=== PATIENT | male | born 1995 | race Caucasian/White ===

== ENCOUNTER 2020-12-16 12:50 | Inpatient (IN) | payer OTHER, SELFPAY ==
[2020-12-16 13:34] VITALS: BP 132/74; PULSE 80; RESP 18; TEMP 36.9; O2SAT 100; BMI 24.7
--- NOTE | 2020-12-16 15:17 | ED.PSYCH ---
HPI - Psych General Chief Complaint: Psychiatric Symptoms Stated Complaint: anxiety Time Seen by Provider: 12/16/20 18:27 Source: patient Mode of arrival: ambulatory Limitations: no limitations History of Present Illness HPI Narrative: Patient presents to ED for worsening anxiety. Patient states that he feels so anxious that he has been calling out of work. Patient states also not been able to sleep and anxiety. Patient states he has not been able to see his therapist or psychiatrist. Patient denies any alcohol or drug abuse. Patient states he has been off antidepressants for over a year. Patient states vague SI statements. Related Data Allergies Allergy/AdvReac Type Severity Reaction Status Date / Time No Known Allergies Allergy Verified 12/16/20 13:34 Review of Systems Review of Systems: Yes all other systems are reviewed and are negative Constitutional: Constitutional: Reports as per HPI and Reports no additional constitutional complaints Eyes: Eyes: Reports as per HPI and Reports no additional eye complaints ENT: Reports system reviewed and no additional complaints, except as documented and Reports as per HPI Cardiovascular: Cardiovascular: Reports as per HPI and Reports no additional cardiovascular complaints Respiratory: Respiratory: Reports as per HPI and Reports no additional respiratory complaints Gastrointestinal: Gastrointestinal: Reports as per HPI and Reports no additional gastrointestinal complaints Genitourinary: Genitourinary: Reports no additional male genitourinary complaints and Reports as per HPI Musculoskeletal: Musculoskeletal: Reports no additional musculoskeletal complaints and Reports as per HPI Integumentary/Breasts: Skin/Breast: Reports system reviewed and no additional complaints, except as docu and Reports as per HPI Neurologic: Reports system reviewed and no additional complaints, except as documented and Reports as per HPI Psychiatric: Psychiatric: Reports no additional psychiatric complaints, Reports as per HPI and Reports anxiety [facility] Past Medical History Medical History (Updated 12/16/20 @ 19:41 by FRIEDA Castro) Anxiety Depression Social History Social History Household Members: Significant Other and Family Housing: Apartment Do you presently have visiting nurse or other home services: No Alcohol intake: former Patient Tobacco Use Status: Never used Tobacco Use of substances other than those prescribed or required for medical reasons: No Have you been hit, kicked, punched, or otherwise hurt by someone within the past year? If so, by whom?: No Do you feel safe in your current relationship?: No Is there a partner from a previous relationship who is making you feel unsafe now?: No Are you made to feel afraid or neglected: No Spiritual Healthcare Practices: n/a Orthodoxy Healthcare Practices: n/a Cultural Healthcare Practices: n/a Advance Directives: No Advance Directives Information Provided: No Guardian: No Do you have thoughts of harming others: None Do you have a plan to hurt others: No Plan Recently lost weight without trying: Unsure Nutrition Risks: Poor intake 0-25% >4 days Poor oral hygiene: No Physical Exam Vital Signs: Vital Signs: Last Vital Signs Temp 97.5 F 12/16/20 17:25 Pulse 70 12/16/20 17:25 Resp 18 12/16/20 15:27 BP 133/80 12/16/20 17:25 Pulse Ox 100 12/16/20 17:25 Body Mass Index 24.7 Const: General: cooperative, healthy appearing, comfortable, no acute distress, well developed, alert and awake Orientation/consciousness: patient oriented x3 HENMT: Head: Yes normal to inspection, Yes No palpable skull fracture present, Yes normocephalic and Yes atraumatic Eyes: General: appearance normal, both eyes and all related structures Neck: Neck: Yes normal visual inspection, Yes full ROM, Yes no lymphadenopathy, Yes no meningeal signs, Yes trachea midline, Yes supple and No tender Chest: Chest palpation & inspection: normal inspection of the chest and normal palpation of entire chest wall Resp: Effort & Inspection: normal respiratory effort and able to speak in complete sentences Auscultation: clear to auscultation bilaterally Cardio: Jugular venous distension: no JVD Heart sounds: S1 normal heart sound present and S2 normal heart sound present GI: Inspection: Yes normal to inspection and No abdominal wall ecchymosis Palpation (GI): Soft to palpation, not firm, nontender, no guarding and not rigid : General: No CVA tenderness and Yes no CVA tenderness Back/Spine/Pelvis: Back: no CVA tenderness, No CVA tenderness and No back tenderness Skin: General skin exam: no rashes or lesions noted and elasticity normal Neuro: General: patient oriented x3, gait normal, no meningeal signs and CN's II-XI intact bilaterally Cranial nerves: Yes CN's II-XII intact bilaterally Psych: Other: Anxiety Appearance: grossly normal, well kempt and not disheveled Course Course Course Narrative: Labs will be sent. Care team consulted will see patient after labs. Reevaluation(s) Reevaluation #1: Patient seen by care team consulted Jaymie who recommends patient to be admitted for psych admission for anxiety/depression. Labs are normal Time: 18:20 MDM - Psych MDM Narrative Medical decision making narrative: Anxiety/depression Lab Data Result diagrams: 12/16/20 15:23 12/16/20 15:23 Labs: Lab Results 12/16/20 12/16/20 12/16/20 Range/Units 13:43 15:23 15:23 WBC 7.9 (4.8-10.8) X10*3/uL RBC 5.54 (4.60-5.80) X10*6/uL Hgb 17.0 (14.0-18.0) g/dl Hct 48.1 (42-52) % MCV 86.8 (80-98) fL MCH 30.7 (27.0-33.0) pg MCHC 35.3 (31.0-36.0) g/dl RDW 11.3 (11.0-16.0) % Plt Count 273 (160-400) X10*3/uL MPV 9.7 (9.4-12.4) fL Immature Gran % (Auto) 0.3 (0.0-0.4) % Neut % (Auto) 68.1 (45-73) % Lymph % (Auto) 23.9 (20-40) % [place] % (Auto) 6.6 (2-11) % Eos % (Auto) 0.6 (0-4) % Baso % (Auto) 0.5 (0-2) % Lymph # (Auto) 1.9 (1.2-4.9) X10*3/uL [place] # (Auto) 0.5 (0.1-1.2) X10*3/uL Eos # (Auto) 0.1 (0.0-0.4) X10*3/uL Baso # (Auto) 0.0 (0.0-0.2) X10*3/uL Abs Immat Gran (auto) 0.02 (0.00-0.03) X10*3/uL Absolute Neuts (auto) 5.4 (2.0-8.3) X10*3/uL Absolute Nucleated RBC 0.000 (0.0-0.012) X10*3/uL Nucleated RBC % (auto) 0.0 (0.0-0.2) /100WBC Sodium 142 (135-145) mmol/L Potassium 3.8 (3.3-5.1) mmol/L Chloride 107 (96-108) mmol/L Carbon Dioxide 23 (22-29) mmol/L Anion Gap 16 (12-20) BUN 7 L (9-16) mg/dL Creatinine 0.83 (0.5-1.4) mg/dL Estim Creat Clear Calc 138.4 Estimated GFR > 60 Random Glucose 89 (60-115) mg/dL Calcium 10.1 (8.4-10.2) mg/dL Total Bilirubin 0.6 (0.0-1.0) mg/dL AST 15 (5-37) U/L ALT 18 (0-40) U/L Alkaline Phosphatase 76 (39-117) U/L Total Protein 7.7 (6.5-8.0) g/dL Albumin 4.9 (3.5-5.0) g/dL Urine Color YELLOW Urine Appearance CLEAR Urine pH 6.0 (5.0-8.0) Ur Specific [place] <= 1.005 (1.005-1.025) Urine Protein NEG (NEG-TRACE) MG/DL Urine Glucose (UA) NEG (NEG) MG/DL Urine Ketones NEG (NEG) MG/DL Urine Blood NEG (NEG) Urine Nitrite NEG (NEG) Ur Leukocyte Esterase NEG (NEG) Urine Opiates Screen (Not Detect) Urine Fentanyl Screen (Not Detect) Ur Barbiturates Screen (Not Detect) Ur Phencyclidine Scrn (Not Detect) Ur Amphetamines Screen (Not Detect) U Benzodiazepines Scrn (Not Detect) Urine Cocaine Screen (Not Detect) U Marijuana (THC) Screen (Not Detect) Ethyl Alcohol mg/dL COVID-19 (DAVIE) (Negative) COVID-19 Clin Com 12/16/20 12/16/20 12/16/20 Range/Units 15:23 15:59 16:01 WBC (4.8-10.8) X10*3/uL RBC (4.60-5.80) X10*6/uL Hgb (14.0-18.0) g/dl Hct (42-52) % MCV (80-98) fL MCH (27.0-33.0) pg MCHC (31.0-36.0) g/dl RDW (11.0-16.0) % Plt Count (160-400) X10*3/uL MPV (9.4-12.4) fL Immature Gran % (Auto) (0.0-0.4) % Neut % (Auto) (45-73) % Lymph % (Auto) (20-40) % [place] % (Auto) (2-11) % Eos % (Auto) (0-4) % Baso % (Auto) (0-2) % Lymph # (Auto) (1.2-4.9) X10*3/uL [place] # (Auto) (0.1-1.2) X10*3/uL Eos # (Auto) (0.0-0.4) X10*3/uL Baso # (Auto) (0.0-0.2) X10*3/uL Abs Immat Gran (auto) (0.00-0.03) X10*3/uL Absolute Neuts (auto) (2.0-8.3) X10*3/uL Absolute Nucleated RBC (0.0-0.012) X10*3/uL Nucleated RBC % (auto) (0.0-0.2) /100WBC Sodium (135-145) mmol/L Potassium (3.3-5.1) mmol/L Chloride (96-108) mmol/L Carbon Dioxide (22-29) mmol/L Anion Gap (12-20) BUN (9-16) mg/dL Creatinine (0.5-1.4) mg/dL Estim Creat Clear Calc Estimated GFR Random Glucose (60-115) mg/dL Calcium (8.4-10.2) mg/dL Total Bilirubin (0.0-1.0) mg/dL AST (5-37) U/L ALT (0-40) U/L Alkaline Phosphatase (39-117) U/L Total Protein (6.5-8.0) g/dL Albumin (3.5-5.0) g/dL Urine Color Urine Appearance Urine pH (5.0-8.0) Ur Specific [place] (1.005-1.025) Urine Protein (NEG-TRACE) MG/DL Urine Glucose (UA) (NEG) MG/DL Urine Ketones (NEG) MG/DL Urine Blood (NEG) Urine Nitrite (NEG) Ur Leukocyte Esterase (NEG) Urine Opiates Screen Not Detected (Not Detect) Urine Fentanyl Screen Not Detected (Not Detect) Ur Barbiturates Screen Not Detected (Not Detect) Ur Phencyclidine Scrn Not Detected (Not Detect) Ur Amphetamines Screen Not Detected (Not Detect) U Benzodiazepines Scrn Not Detected (Not Detect) Urine Cocaine Screen Not Detected (Not Detect) U Marijuana (THC) Screen Not Detected (Not Detect) Ethyl Alcohol < 10 mg/dL COVID-19 (DAVIE) Negative (Negative) COVID-19 Clin Com See Note Discharge Plan Discharge Clinical Impression: Acute anxiety Patient Disposition: Admitted As Inpatient
[2020-12-16 15:27] VITALS: RESP 18
[2020-12-16 15:27] LABS: MANUAL DIFF FLAG NO
[2020-12-16 15:28] LABS: Basophils Percent Auto 0.5 % (0-2); Eosinophils Absolute Auto 0.1 X10*3/uL (0.0-0.4); Eosinophils Percent Auto 0.6 % (0-4); Hematocrit 48.1 % (42-52); Imm Gran Abs Auto 0.02 X10*3/uL (0.00-0.03); Imm Gran Pct Auto 0.3 % (0.0-0.4); Lymphocytes Absolute Auto 1.9 X10*3/uL (1.2-4.9); Lymphocytes Percent Auto 23.9 % (20-40); Mean Corpuscular HGB Conc 35.3 g/dl (31.0-36.0); Mean Corpuscular Hemoglobin 30.7 pg (27.0-33.0); Mean Corpuscular Volume 86.8 fL (80-98); Mean Platelet Volume 9.7 fL (9.4-12.4); Monocytes Absolute Auto 0.5 X10*3/uL (0.1-1.2); Monocytes Percent Auto 6.6 % (2-11); Neutrophils Absolute Auto 5.4 X10*3/uL (2.0-8.3); Neutrophils Percent Auto 68.1 % (45-73); Platelet Count 273 X10*3/uL (160-400); Red Blood Count 5.54 X10*6/uL (4.60-5.80); Red Cell Distribution Width 11.3 % (11.0-16.0); White Blood Count 7.9 X10*3/uL (4.8-10.8)
[2020-12-16 15:46] LABS: Alanine Aminotransferase 18 U/L (0-40); Albumin Level 4.9 g/dL (3.5-5.0); Alkaline Phosphatase 76 U/L (39-117); Anion Gap 16 (12-20); Aspartate Amino Transferase 15 U/L (5-37); Bilirubin Total 0.6 mg/dL (0.0-1.0); Blood Urea Nitrogen 7 mg/dL (9-16); Calcium 10.1 mg/dL (8.4-10.2); Carbon Dioxide 23 mmol/L (22-29); Chloride 107 mmol/L (96-108); Creatinine Clr Calc Pharmacy 138.4; Estimated Glomerular Filt Rate > 60; Glucose Random 89 mg/dL (60-115); Potassium 3.8 mmol/L (3.3-5.1); Sodium 142 mmol/L (135-145); Total Protein 7.7 g/dL (6.5-8.0)
[2020-12-16 15:54] LABS: Appearance Urine CLEAR; Color Urine YELLOW; Glucose Urine UA NEG (NEG); Leukocyte Esterase Urine NEG (NEG); Nitrite Urine NEG (NEG); Specific Gravity - Urine <= 1.005 (1.005-1.025); Urine Blood NEG (NEG); Urine Ketones NEG (NEG); Urine Protein NEG (NEG-TRACE)
[2020-12-16 16:08] LABS: Amphetamine Screen Urine Not Detected (Not Detect); Barbiturates, Urine Not Detected (Not Detect); Benzodiazepines Screen Urine Not Detected (Not Detect); Cannabinoid Screen Urine Not Detected (Not Detect); Cocaine Screen Urine Not Detected (Not Detect); Fentanyl, urine Not Detected (Not Detect); Opiate Screen Urine Not Detected (Not Detect); Phencyclidine Screen Urine Not Detected (Not Detect)
[2020-12-16 16:28] LABS: COVID-19 Test Negative (Negative)
[2020-12-16 16:29] LABS: Ethanol < 10 mg/dL
[2020-12-16 17:25] VITALS: BP 133/80; PULSE 70; TEMP 36.4; O2SAT 100
--- NOTE | 2020-12-16 18:54 | MHC.CARE ---
CARE team evaluated pt. Disposition is for inpt psych. Discussed with ED provider Silverio MALAVE and irrigation pump installer psychiatrist Martin Peralta MD, both are in agreement with plan of care. Pt will be transferred to [facility] for admission.
--- NOTE | 2020-12-16 19:32 | PC.ADMIT ---
PT admitted [place] [facility] for unspecified anxiety disorder and unspecified depressive disorder on a conditional voluntary. PT reports that he has been feeling anxious and depressed for a while but recently the symptoms have increased to the point that he has been calling out of work. Pt also reports intrusive thougths to harm himself by overdosing on medication. PT states that he has been experiencing poor sleep and apetite, feeling hopeless and helpless and not attending to his ADLs. PT denies intent to harm himself and is help seeking. PT is calm and cooperative with admission process, this is pt's first inpatient admission. Pt reports that he has a PCP and a therapist but has not been on medications since last year, stating that he was taking sertraline and found that helpful. PT denies SI/HI at time of admission, is hopeful and future focused. PT is covid negative and his tox screen was negative.
[2020-12-16] MEDS: traZODone HCL 50 MG TABLET PO (23:37)
[2020-12-17] MEDS: FLUoxetine HCl 10 MG CAPSULE PO (14:09)
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
[2020-12-17 18:00] VITALS: BP 139/72; PULSE 63; RESP 18; TEMP 36.6; O2SAT 99
[2020-12-17] MEDS: traZODone HCL 50 MG TABLET PO (23:17)
[2020-12-18 06:00] VITALS: BP 135/64; PULSE 73; RESP 18; TEMP 36.7; O2SAT 99
--- NOTE | 2020-12-18 09:00 | P.PNPSI_ITS ---
Subjective Subjective Date of Service: 12/19/20 Reason For Visit: SI Subjective Notes: Conditional Voluntary Interim History: Gallito reports feeling less anxious, less depressed. He reports improved sleep. He also reports eating better. He reports morning are difficult as he tends to feel more anxious in the morning. He denies SI/HI. He is looking forward to connect with OP psychiatric services. We discussed emotional bluntness with sertraline. He currently denies numbness with prozac but he was just recently started on it. we discussed halfway addition of wellbutrin if this happens. Per nursing, pt has been visible, attending groups, social with select peers. No behavioral concerns. Review of Systems Review of Systems Yes all other systems are reviewed and are negative Constitutional: Reports as per HPI and Reports no additional constitutional complaints Eyes: Reports as per HPI and Reports no additional eye complaints Reports system reviewed and no additional complaints, except as documented and Reports as per HPI Cardiovascular: Reports as per HPI and Reports no additional cardiovascular complaints Respiratory: Reports as per HPI and Reports no additional respiratory complaints Gastrointestinal: Reports as per HPI and Reports no additional gastrointestinal complaints Genitourinary: Reports no additional male genitourinary complaints and Reports as per HPI Musculoskeletal: Reports no additional musculoskeletal complaints and Reports as per HPI Skin/Breast: Reports system reviewed and no additional complaints, except as docu and Reports as per HPI Reports system reviewed and no additional complaints, except as documented and Reports as per HPI Psychiatric: Reports no additional psychiatric complaints, Reports as per HPI and Reports anxiety Mental Status Exam Mental Status Exam Narrative: Appearance: casually groomed, fair hygiene in NAD Behavior: calm, cooperative psychomotor:no agitation or retardation noted Speech:clear, normal rate/rhythm/volume, spontaneous Thought process:linear Thought content:no signs of psychosis, less depressed increasingly more future oriented. Mood: better Affect: brighter at times, congruent SI:denies HI:denies VH/AH:none Delusions:none Insight/judgment:fair x 2. Memory/cog: alert, oriented x 2. Diagnostics Vital Signs (24Hr): Vital Signs - 24 hr 12/18/20 21:03 Temperature 97.8 F Pulse Rate 76 Blood Pressure 144/75 H Pulse Oximetry 99 Body Mass Index 24.7 Labs Results: 12/16/20 15:23 12/16/20 15:23 Medications Medications Current Medications Acetaminophen (Acetaminophen 325 Mg Tablet) 650 mg PO Q6H PRN PRN Reason: Headache/Pain Mild Scale (1-3) Al Hydroxide/Mg Hydroxide (Magnesium Hydrox/Alum Hydrox 30 Ml Oral.Susp) 30 ml PO Q6H PRN PRN Reason: Heartburn/Nausea Fluoxetine HCl (Fluoxetine Hcl 20 Mg Capsule) 20 mg PO DAILY BÁRBARA Hydroxyzine HCl (Hydroxyzine Hcl 25 Mg Tablet) 25 mg PO BEDTIME PRN PRN Reason: Anxiety Magnesium Hydroxide (Milk Of Magnesia 30 Ml Oral.Susp) 30 ml PO DAILY PRN PRN Reason: Constipation Trazodone HCl (Trazodone Hcl 50 Mg Tablet) 50 mg PO BEDTIME PRN PRN Reason: Insomnia Last Admin: 12/18/20 23:02 Dose: 50 mg Documented by: Allergies Allergies Allergy/AdvReac Type Severity Reaction Status Date / Time No Known Allergies Allergy Verified 12/16/20 13:34 Assessment & Plan Assessment & Plan (1) Major depressive disorder: Status: Acute Code(s): F32.9 - Major depressive disorder, single episode, unspecified (2) Anxiety disorder: Status: Acute Code(s): F41.9 - Anxiety disorder, unspecified Assessment and Plan: both anxiety and depression. has had success with SSRI in the past. father with bipolar disorder, per his report, however, so will have to be watchful when taking SSRIs. may also benefit from wellbutrin for augmentation, but pt declining currently. 1) Increase prozac 20 mg daily on 12/19. 2) T/C adding wellbutrin. 3) dispo - pending inpatient stabilization. Greater than 50% of the session was spent on counseling and/or coordination of care Reason for contiued inpatient stay Substantial Risk for: harm to self
[2020-12-18] MEDS: FLUoxetine HCl 10 MG CAPSULE PO (09:52)
[2020-12-18 21:03] VITALS: BP 144/75; PULSE 76; TEMP 36.6; O2SAT 99
[2020-12-18] MEDS: traZODone HCL 50 MG TABLET PO (23:02)
[2020-12-19] MEDS: FLUoxetine HCl 20 MG CAPSULE PO (09:05)
--- NOTE | 2020-12-19 09:14 | HO.PSYCHPN ---
Subjective Subjective Date of Service: 12/20/20 Reason For Visit: SI Subjective Notes: Conditional Voluntary Interim History: This selling underwriter met with pt and his mother. Pt reports less depressed, less overwhelmed. He continues to report significant anxiety especially in the morning. He reports his appetite is better. He reports he continues to ruminate about past trauma. She denies SI/HI. Mother reports that she notes a positive improvement in symptoms. Per nursing, pt has been visible in the unit, attended assigned groups. Social with select peers. Medication Compliance: Yes Side effects from medications: No Attending Groups: Yes Review of Systems Review of Systems Yes all other systems are reviewed and are negative Constitutional: Reports as per HPI and Reports no additional constitutional complaints Eyes: Reports as per HPI and Reports no additional eye complaints Reports system reviewed and no additional complaints, except as documented and Reports as per HPI Cardiovascular: Reports as per HPI and Reports no additional cardiovascular complaints Respiratory: Reports as per HPI and Reports no additional respiratory complaints Gastrointestinal: Reports as per HPI and Reports no additional gastrointestinal complaints Genitourinary: Reports no additional male genitourinary complaints and Reports as per HPI Musculoskeletal: Reports no additional musculoskeletal complaints and Reports as per HPI Skin/Breast: Reports system reviewed and no additional complaints, except as docu and Reports as per HPI Reports system reviewed and no additional complaints, except as documented and Reports as per HPI Psychiatric: Reports no additional psychiatric complaints, Reports as per HPI and Reports anxiety Mental Status Exam Mental Status Exam Narrative: Appearance: casually groomed, fair hygiene in NAD Behavior: calm, cooperative psychomotor:no agitation or retardation noted Speech:clear, normal rate/rhythm/volume, spontaneous Thought process:linear Thought content:no signs of psychosis, less depressed increasingly more future oriented. Mood: better Affect: brighter at times, congruent SI:denies HI:denies VH/AH:none Delusions:none Insight/judgment:fair x 2. Memory/cog: alert, oriented x 2. Diagnostics Vital Signs (24Hr): Vital Signs - 24 hr 12/19/20 20:25 Temperature 98.0 F Pulse Rate 66 Blood Pressure 132/67 Pulse Oximetry 97 Body Mass Index 24.7 Labs Results: 12/16/20 15:23 12/16/20 15:23 Medications Medications Current Medications Acetaminophen (Acetaminophen 325 Mg Tablet) 650 mg PO Q6H PRN PRN Reason: Headache/Pain Mild Scale (1-3) Al Hydroxide/Mg Hydroxide (Magnesium Hydrox/Alum Hydrox 30 Ml Oral.Susp) 30 ml PO Q6H PRN PRN Reason: Heartburn/Nausea Fluoxetine HCl (Fluoxetine Hcl 20 Mg Capsule) 20 mg PO DAILY [facility] Last Admin: 12/20/20 08:32 Dose: 20 mg Documented by: Hydroxyzine HCl (Hydroxyzine Hcl 25 Mg Tablet) 25 mg PO BEDTIME PRN PRN Reason: Anxiety Magnesium Hydroxide (Milk Of Magnesia 30 Ml Oral.Susp) 30 ml PO DAILY PRN PRN Reason: Constipation Trazodone HCl (Trazodone Hcl 50 Mg Tablet) 50 mg PO BEDTIME PRN PRN Reason: Insomnia Last Admin: 12/19/20 23:10 Dose: 50 mg Documented by: Allergies Allergies Allergy/AdvReac Type Severity Reaction Status Date / Time No Known Allergies Allergy Verified 12/16/20 13:34 Assessment & Plan Assessment & Plan (1) Major depressive disorder: Status: Acute Code(s): F32.9 - Major depressive disorder, single episode, unspecified (2) Anxiety disorder: Status: Acute Code(s): F41.9 - Anxiety disorder, unspecified Assessment and Plan: both anxiety and depression. has had success with SSRI in the past. father with bipolar disorder, per his report, however, so will have to be watchful when taking SSRIs. may also benefit from wellbutrin for augmentation, but pt declining currently. 1) Increase prozac 20 mg daily on 12/19. 2) T/C adding wellbutrin. 3) dispo - pending inpatient stabilization. Greater than 50% of the session was spent on counseling and/or coordination of care Reason for contiued inpatient stay Substantial Risk for: rapid decompensation
[2020-12-19 20:25] VITALS: BP 132/67; PULSE 66; TEMP 36.7; O2SAT 97
[2020-12-19] MEDS: traZODone HCL 50 MG TABLET PO (23:10)
[2020-12-20] MEDS: FLUoxetine HCl 20 MG CAPSULE PO (08:32)
[2020-12-20 09:25] VITALS: BP 134/61; PULSE 85; TEMP 36.9; O2SAT 98
--- NOTE | 2020-12-20 10:54 | HO.PSYCHPN ---
Subjective Subjective Date of Service: 12/21/20 Reason For Visit: SI Interim History: Pt reports sleeping better with trazodone. He reports less depressed mood, less anxious mood. He does report that morning for about 2 hrs, he feels very anxious, unable to eat or engage in activities that may required more concentration. He denies SI/HI. Future oriented in that he is looking to be discharged home tomorrow. Per nursing, pt has been visible in the unit, attended assigned groups. Social with select peers. Review of Systems Review of Systems Yes all other systems are reviewed and are negative Constitutional: Reports as per HPI and Reports no additional constitutional complaints Eyes: Reports as per HPI and Reports no additional eye complaints Reports system reviewed and no additional complaints, except as documented and Reports as per HPI Cardiovascular: Reports as per HPI and Reports no additional cardiovascular complaints Respiratory: Reports as per HPI and Reports no additional respiratory complaints Gastrointestinal: Reports as per HPI and Reports no additional gastrointestinal complaints Genitourinary: Reports no additional male genitourinary complaints and Reports as per HPI Musculoskeletal: Reports no additional musculoskeletal complaints and Reports as per HPI Skin/Breast: Reports system reviewed and no additional complaints, except as docu and Reports as per HPI Reports system reviewed and no additional complaints, except as documented and Reports as per HPI Psychiatric: Reports no additional psychiatric complaints, Reports as per HPI and Reports anxiety Mental Status Exam Mental Status Exam Narrative: Appearance: casually groomed, fair hygiene in NAD Behavior: calm, cooperative psychomotor:no agitation or retardation noted Speech:clear, normal rate/rhythm/volume, spontaneous Thought process:linear Thought content:no signs of psychosis, less depressed increasingly more future oriented. Mood: better Affect: brighter at times, congruent SI:denies HI:denies VH/AH:none Delusions:none Insight/judgment:fair x 2. Memory/cog: alert, oriented x 2. Diagnostics Vital Signs (24Hr): Vital Signs - 24 hr 12/20/20 18:00 12/21/20 06:00 Temperature 98.3 F 98.2 F Pulse Rate 86 76 Respiratory Rate 18 20 Blood Pressure 127/69 116/59 L Pulse Oximetry 96 98 Body Mass Index 24.7 Labs Results: 12/16/20 15:23 12/16/20 15:23 Medications Medications Current Medications Acetaminophen (Acetaminophen 325 Mg Tablet) 650 mg PO Q6H PRN PRN Reason: Headache/Pain Mild Scale (1-3) Al Hydroxide/Mg Hydroxide (Magnesium Hydrox/Alum Hydrox 30 Ml Oral.Susp) 30 ml PO Q6H PRN PRN Reason: Heartburn/Nausea Fluoxetine HCl (Fluoxetine Hcl 20 Mg Capsule) 20 mg PO DAILY [facility] Last Admin: 12/21/20 08:23 Dose: 20 mg Documented by: Hydroxyzine HCl (Hydroxyzine Hcl 25 Mg Tablet) 25 mg PO BEDTIME PRN PRN Reason: Anxiety Lorazepam (Lorazepam 0.5 Mg Tablet) 0.5 mg PO DAILY [facility] Last Admin: 12/21/20 08:23 Dose: 0.5 mg Documented by: Magnesium Hydroxide (Milk Of Magnesia 30 Ml Oral.Susp) 30 ml PO DAILY PRN PRN Reason: Constipation Trazodone HCl (Trazodone Hcl 50 Mg Tablet) 50 mg PO BEDTIME PRN PRN Reason: Insomnia Last Admin: 12/20/20 23:04 Dose: 50 mg Documented by: Allergies Allergies Allergy/AdvReac Type Severity Reaction Status Date / Time No Known Allergies Allergy Verified 12/16/20 13:34 Assessment & Plan Assessment & Plan (1) Major depressive disorder: Status: Acute Code(s): F32.9 - Major depressive disorder, single episode, unspecified (2) Anxiety disorder: Status: Acute Code(s): F41.9 - Anxiety disorder, unspecified Assessment and Plan: both anxiety and depression. has had success with SSRI in the past. father with bipolar disorder, per his report, however, so will have to be watchful when taking SSRIs. may also benefit from wellbutrin for augmentation, but pt declining currently. 1) Increase prozac 20 mg daily on 12/19. 2) T/C adding wellbutrin. 3) dispo - pending inpatient stabilization. Greater than 50% of the session was spent on counseling and/or coordination of care Reason for contiued inpatient stay Substantial Risk for: stable for discharge
[2020-12-20 18:00] VITALS: BP 127/69; PULSE 86; RESP 18; TEMP 36.8; O2SAT 96
[2020-12-20] MEDS: traZODone HCL 50 MG TABLET PO (23:04)
[2020-12-21 06:00] VITALS: BP 116/59; PULSE 76; RESP 20; TEMP 36.8; O2SAT 98
[2020-12-21] MEDS: FLUoxetine HCl 20 MG CAPSULE PO (08:23)
[2020-12-21] MEDS: LORazepam 0.5 MG TABLET PO (08:23)
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
== END 2020-12-21 13:03 | disposition home or self-care (01) | DRG 751 ==
LOC: HO.ED 18:33 → HO.PADLT16 18:35
PROVIDERS: Physician Assistant; Admitting Provider Psychiatry & Neurology Psychiatry; Emergency Provider Emergency Medicine Emergency Medical Services; PCP Nurse Practitioner Family; Visit Provider Social Worker
DX: F33.1 Major depressive disorder, recurrent, moderate (principal); R45.851 Suicidal ideations; F41.9 Anxiety disorder, unspecified; Z20.822 Contact with and (suspected) exposure to COVID-19; Z79.899 Other long term (current) drug therapy
CPT/HCPCS: 36415; 80053; 80307; 81003; 82077; 85025; 87635; 99284